=== PATIENT | male | born 1980 | race African-American/Black ===

== ENCOUNTER 2018-02-01 17:38 | Emergency (ER) | payer SELFPAY ==
[2018-02-01 17:44] VITALS: O2SAT 94
--- NOTE | 2018-02-01 18:00 | EDPHY ---
H & P Stated Complaint: chest pain SOB x 1 day Time Seen by Provider: 02/01/18 18:00 HPI/ROS: HPI: This is a 37-year-old male who presents with Chief Complaint: Shortness breath and chest pain x1 day Location: Chest Quality: Dyspnea and pain Duration: 1 day Signs and Symptoms: no shortness of breath at rest, no shortness of breath on exertion,+ dry hacking cough, + chest pain, no palpitations, no lower extremity edema, no wheezing, no orthopnea, no paroxysmal nocturnal dyspnea, no fever, no injury/trauma, no hemoptysis, no carpal pedal spasms Timing: Gradual onset Severity: Moderate Context: Patient is generally healthy, presents with gradual onset over the last day of anterior generalized chest pain that is worsened with leaning forward and accompanied by dry hacking cough. reports that the children have had cold over the last week. Patient however denies any me fever, upper respiratory symptoms. Patient has had no recent long distance travel and denies any calf pain or swelling. Denies IV drug use. No history of lung disease. Modifying Factors: None Comment: ROS: see HPI Constitutional: No fever, no chills, no weight loss Eyes: No blurred vision Respiratory: No shortness of breath, + cough Cardiovascular: + chest pain, no palpitations, no lower extremity edema Gastrointestinal: No nausea, no vomiting, no diarrhea Genitourinary: No dysuria Extremities: No myalgias Neurologic: No weakness, no numbness Skin: No rashes Hematologic: No bruising, no bleeding MEDICAL/SURGICAL/SOCIAL HISTORY: Medical history: Generally healthy. Does not take any regular medications. Surgical history: Denies Social history: with children. Employed. CONSTITUTIONAL: Extremely well-appearing adult male, awake and alert, no obvious distress HEENT: Atraumatic and normocephalic, PERRL, EOMI. Tympanic membranes clear. Oropharynx clear, no exudate and moist pink mucosa. Airway patent. No lymphadenopathy. No meningismus. Cardiovascular: Normal S1/S2, mild tachycardia, regular rhythm, without murmur rub or gallop. PULMONARY/CHEST: Symmetrical and nontender. Clear to auscultation bilaterally. Good air movement. No accessory muscle usage. ABDOMEN: Soft, nondistended, nontender, no rebound, no guarding, no peritoneal signs, no masses or organomegaly. No CVAT. EXTREMITIES: 2/2 pulses, strength 5/5, no deformities, no clubbing, no cyanosis or edema. NEUROLOGICAL: no focal neuro deficits. GCS 15. SKIN: Warm and dry, no erythema. no rash. Good capillary refill. Source: Patient Exam Limitations: No limitations - Personal History Current Tetanus Diphtheria and Acellular Pertussis (TDAP): Yes - Medical/Surgical History Hx Asthma: No Hx Chronic Respiratory Disease: No Hx Diabetes: No Hx Cardiac Disease: No Hx Renal Disease: No Hx Cirrhosis: No Hx Alcoholism: No Hx HIV/AIDS: No Hx Splenectomy or Spleen Trauma: No Other PMH: none - Social History Smoking Status: Never smoked Constitutional: Initial Vital Signs Temperature (C) 37 C 02/01/18 17:41 Heart Rate 101 H 02/01/18 17:41 Respiratory Rate 16 02/01/18 17:41 Blood Pressure 114/84 H 02/01/18 17:41 O2 Sat (%) 94 02/01/18 17:41 O2 Delivery Mode Room Air Allergies/Adverse Reactions: No Known Allergies Allergy (Unverified 02/01/18 19:09) Home Medications: Medication Instructions Recorded Albuterol Sulfate [Proair Hfa] 1 - 2 puffs IH Q4 PRN #1 hfa.aer.ad 02/01/18 BESIVANCE 02/01/18 Benzonatate [Tessalon Pearles (RX)] 100 mg PO Q6 PRN #15 cap 02/01/18 Clarithromycin [Biaxin (*)] 500 mg PO BID #14 tab 02/01/18 Lotemax 02/01/18 Medical Decision Making - Diagnostics EKG Interpretation: 12 lead EKG: Indication: Chest Pain Rhythm: Normal sinus rhythm, rate of 92 beats per minute [place]: Normal Intervals: Normal QRS: Normal ST segments: Normal T segments: Nonspecific changes INTERPRETATION: No acute ischemic changes The 12 lead EKG was interpreted by myself and with attending. Imaging Results: Imaging Impressions Chest X-Ray 02/01/18 18:14 Impression: Suspect right basilar pneumonia. Recommend follow-up chest radiograph in 4-6 weeks to ensure resolution. ED Course/Re-evaluation: EKG, chest x-ray, labs, IV medication, nebulizer therapy ordered Vital signs reviewed upon arrival in stable EKG my read shows no acute ischemic changes/arrhythmias/pericarditis ADARSH risk factor low for ACS Chest x-ray my read shows right opacity; curb 65 score=0; treat outpatient is community-acquired pneumonia; no hypoxia/respiratory distress. No recent antibiotic use in 3 months. Will start macrolide. Given Biaxin 1000 mg. Labs reviewed and no signs of anemia/VTE/electrolyte imbalance/acute kidney injury/ACS This patient was seen under the supervision of my secondary supervising physician. I evaluated care for this patient independently. Differential Diagnosis: Chest pain including but not limited to myocardial ischemia, pulmonary embolus, chest wall pain, pleural inflammation and pulmonary infectious causes. - Data Points Laboratory Results: Laboratory Results 02/01/18 18:28 02/01/18 18:28 02/01/18 02/01/18 02/01/18 18:28 18:28 18:28 WBC 11.65 10^3/uL H 10^3/uL (3.80-9.50) RBC 5.48 10^6/uL 10^6/uL (4.40-6.38) Hgb 14.7 g/dL g/dL (13.7-17.5) Hct 44.2 % % (40.0-51.0) MCV 80.7 fL L fL (81.5-99.8) MCH 26.8 pg L pg (27.9-34.1) MCHC 33.3 g/dL g/dL (32.4-36.7) RDW 13.2 % % (11.5-15.2) Plt Count 217 10^3/uL 10^3/uL (150-400) MPV 9.2 fL fL (8.7-11.7) Neut % (Auto) 78.3 % H % (39.3-74.2) Lymph % (Auto) 9.8 % L % (15.0-45.0) Bertie % (Auto) 9.5 % % (4.5-13.0) Eos % (Auto) 1.8 % % (0.6-7.6) Baso % (Auto) 0.3 % % (0.3-1.7) Nucleat RBC Rel Count 0.0 % % (0.0-0.2) Absolute Neuts (auto) 9.12 10^3/uL H 10^3/uL (1.70-6.50) Absolute Lymphs (auto) 1.14 10^3/uL 10^3/uL (1.00-3.00) Absolute Monos (auto) 1.11 10^3/uL H 10^3/uL (0.30-0.80) Absolute Eos (auto) 0.21 10^3/uL 10^3/uL (0.03-0.40) Absolute Basos (auto) 0.03 10^3/uL 10^3/uL (0.02-0.10) Absolute Nucleated RBC 0.00 10^3/uL 10^3/uL (0-0.01) Immature Gran % 0.3 % % (0.0-1.1) Immature Gran # 0.04 10^3/uL 10^3/uL (0.00-0.10) D-Dimer 0.49 ug/mLFEU ug/mLFEU (0.00-0.50) Sodium 141 mEq/L mEq/L (135-145) Potassium 3.9 mEq/L mEq/L (3.5-5.2) Chloride 103 mEq/L mEq/L (97-110) Carbon Dioxide 25 mEq/l mEq/l (22-31) Anion Gap 13 mEq/L mEq/L (8-16) BUN 12 mg/dL mg/dL (7-23) Creatinine 0.8 mg/dL mg/dL (0.7-1.3) Estimated GFR > 60 Glucose 88 mg/dL mg/dL (70-100) Calcium 9.2 mg/dL mg/dL (8.5-10.4) Troponin I < 0.012 ng/mL ng/mL (0.000-0.034) Medications Given: Discontinued Medications Albuterol/Ipratropium (Duoneb) 3 ml IH EDNOW ONE Stop: 02/01/18 18:14 Last Admin: 02/01/18 19:17 Dose: 3 ml Clarithromycin (Biaxin) 1,000 mg PO ONCE ONE PRN Reason: Protocol Stop: 02/01/18 19:08 Last Admin: 02/01/18 20:12 Dose: 1,000 mg Ketorolac Tromethamine (Toradol) 30 mg IVP EDNOW ONE Stop: 02/01/18 18:26 Last Admin: 02/01/18 19:11 Dose: 30 mg Prednisone (Prednisone) 60 mg PO EDNOW ONE Stop: 02/01/18 18:14 Last Admin: 02/01/18 19:14 Dose: 60 mg Departure - Departure Disposition: Home, Routine, Self-Care Clinical Impression: Community acquired pneumonia Qualifiers: Laterality: right Lung location: lower lobe of lung Qualified Code(s): J18.1 - Lobar pneumonia, unspecified organism Condition: Good Instructions: Community Acquired Pneumonia (ED) Additional Instructions: Consume a minimum of 8-10 glasses of water or electrolyte fluid replacement drinks that include Gatorade, Powerade, Pedialyte. Rest as much as possible until you are feeling better. Please wash your hands frequently, cover your cough, and stay home until you are symptom free. Use Tessalon Perles every 6 hr as needed for cough. Use Albuterol inhaler every 4 hr as needed for shortness of breath, wheezing. Referrals: [facility],. [Clinic] - As per Instructions Prescriptions: Albuterol Sulfate [Proair Hfa] 1 - 2 puffs IH Q4 PRN #1 hfa.aer.ad PRN Reason: Short Of Breath/Dyspnea Benzonatate [Tessalon Pearles (RX)] 100 mg PO Q6 PRN #15 cap PRN Reason: Cough, Moderate Clarithromycin [Biaxin (*)] 500 mg PO BID #14 tab
--- NOTE | 2018-02-01 18:11 | CPEKG ---
Heart Rate: 92 RR Interval: 652 P-R Interval: 168 QRSD Interval: 88 QT Interval: 340 QTC Interval: 421 P [place]: 69 QRS [place]: -11 T Wave [place]: 40 EKG Severity - ABNORMAL ECG - EKG Impression: SINUS RHYTHM EKG Impression: PROBABLE LEFT ATRIAL ABNORMALITY EKG Impression: PROBABLE LEFT VENTRICULAR HYPERTROPHY Electronically Signed By: Esperanza De Leon 01-Feb-2018 22:42:17
[2018-02-01] MEDS ORDERED: predniSONE 20 MG TAB PO ONE (18:13)
[2018-02-01] MEDS ORDERED: IPRATROPIUM/ALBUTEROL 3 ML DEYVIAL IH ONE (18:13)
[2018-02-01] MEDS ORDERED: KETOROLAC 30 MG/1 ML SDV IVP ONE (18:25)
[2018-02-01 18:50] LABS: PLATELET COUNT 217 10^3/uL (150-400)
[2018-02-01] MEDS ORDERED: CLARITHROMYCIN 500 MG TAB PO ONE (19:07)
[2018-02-01] MEDS ORDERED: ALBUTEROL INH PREPACK MDI TAKEHOME ONE (20:31)
[2018-02-01 20:42] VITALS: BP 112/81; PULSE 96; RESP 18; TEMP 97.5
== END 2018-02-01 20:42 | disposition home or self-care (01) ==
DX: J18.1 Lobar pneumonia, unspecified organism (principal)
CPT/HCPCS: 96374; J1885; J7512